=== PATIENT | female | born 1975 | race Caucasian/White ===

== ENCOUNTER 2021-05-14 08:50 | Day surgery (SDC) | payer BC ==
[~2021-05-14] VITALS: Ht 167.6 cm; Wt 122.0 kg
--- NOTE | ~2021-05-14 | OR ---
[facility] [address], [place] [address] Draft DATE OF OPERATION: 05/14/2021 SURGEON: Chance Tobar DO PREOPERATIVE DIAGNOSES: 1. Abnormal uterine bleeding. 2. Fibroid uterus. 3. Morbid obesity. POSTOPERATIVE DIAGNOSES: 1. Abnormal uterine bleeding. 2. Fibroid uterus. 3. Morbid obesity. PROCEDURES PERFORMED: 1. Total laparoscopic hysterectomy. 2. Bilateral salpingectomy. 3. Cystoscopy. REHABILITATION TECHNICIAN: Pedro Burciaga MD ANESTHESIA: General. ESTIMATED BLOOD LOSS: 20 mL. SPECIMENS: Uterus, bilateral fallopian tubes, and cervix. DRAINS: Edmond to dependent drainage. FINDINGS: Fibroid uterus. Normal ovaries bilaterally, status post tubal ligation with Falope rings bilaterally. Hemostasis and excellent apical support during the procedure. On cystoscopy, normal bladder with bilateral ureteral jets. COMPLICATIONS: PATIENT NAME: JEWEL CAMPBELL OPERATIVE REPORT DATE OF : 73 REPORT #: [id number] PHYSICIAN: CHANCE TOBAR DO PCP: OPAL CORDERO REPORT IS CONFIDENTIAL AND NOT TO BE RELEASED WITHOUT AUTHORIZATION [facility] [address], [place] [address] Draft None. INDICATIONS: Ms. Campbell is a pleasant 46-year-old female, who presents with a history of increasing abnormal uterine bleeding. Ultrasound demonstrated fibroid uterus and in-office hysteroscopy was performed and incomplete resection of submucosal fibroid was performed. The patient requests definitive treatment with total laparoscopic hysterectomy. Risks, benefits, and alternatives were discussed in detail with the patient. The patient understands and wished to proceed with procedure. TECHNIQUE: The patient was taken to the operating room. A time-out was performed to confirm correct patient, correct procedure. General anesthesia was adequately established. The patient was prepped and draped in the dorsal lithotomy position with feet in Yellofin stirrups. ICPs were on a running. The patient received Ancef 3 g preoperatively per skip protocol and heparin per Caprini score. A Edmond catheter was inserted. A weighted speculum was placed in vagina and the anterior lip of the cervix was grasped with single-tooth tenaculum. The cervix was gently dilated using Hegar dilators and VCare uterine manipulator was placed without difficulty. Surgeon's gloves were changed and attention was turned to the abdomen. Two cm below the umbilicus, the subcutaneous tissue was infiltrated with 0.25% Marcaine with epinephrine and 3 cm incision was made using a surgical scalpel. Blunt dissection to the fascia was then performed and the fascia was grasped with hemostats, elevated, and entered sharply using Metzenbaum scissors. Stay sutures were placed in the superior and inferior edge of the fascial incision and the peritoneum was entered bluntly. Plummer operative trocar was then placed under direct visualization and pneumoperitoneum was established. Survey of the abdomen and pelvis was performed with above findings noted. A 5 mm assist port was then placed in the left lower quadrant under direct visualization. An 8 mm expanding port was placed in the right lower quadrant under direct visualization without complication. Attention was turned to the hysterectomy. The left fallopian tube was grasped at the fimbriated end, elevated, and dissected along the mesosalpinx using LigaSure device. This was then delivered and sent to pathology for further evaluation. The left uteroovarian ligament was fulgurated and divided. The process was repeated on the right with resection of fallopian tube and the utero-ovarian ligament. The left round ligament was fulgurated and divided using LigaSure device and the leaves of the broad ligament were divided. The anterior leaf was divided down to the level of the vaginal cup and the bladder pushed well below the vaginal cuff. The posterior leaf was divided from the cut edge of the round ligament to the uterosacral ligament and across the posterior edge of the vaginal cup. The uterine vessels were identified, fulgurated, and divided with excellent hemostasis. The process was repeated on the right with the round ligament fulgurated and divided. The leaves of the broad ligament fulgurated and divided and the uterine vessels identified, fulgurated and divided with excellent PATIENT NAME: JEWEL CAMPBELL OPERATIVE REPORT DATE OF : 73 REPORT #: [id number] PHYSICIAN: CHANCE TOBAR DO PCP: OPAL CORDERO REPORT IS CONFIDENTIAL AND NOT TO BE RELEASED WITHOUT AUTHORIZATION [facility] [address], [place] [address] Draft hemostasis. Sonicision device was then used to perform circumferential colpotomy and the cervix and uterus were delivered through the vagina without difficulty. The vagina was packed with a wet lap inside of a surgical glove to maintain pneumoperitoneum. The pelvis was irrigated and found hemostatic. Colpotomy was then repaired using V-Loc suture with an Endostitch device with careful attention to incorporate the uterosacral ligaments and also to incorporate the vaginal epithelium with each bite. This was closed in a running nonlocked manner with excellent hemostasis and apical support noted. The pelvis was then irrigated and found to be hemostatic. Pneumoperitoneum was reduced and the trocars were removed. Fascial incision was repaired using 0 Vicryl in a running nonlocked manner and reinforced by tying the stay sutures together. Skin was then reapproximated using 4-0 Monocryl in subcuticular stitch with excellent hemostasis cosmesis. Attention was then turned to cystoscopy. The Edmond catheter was removed and the glove was removed from the vagina. A 7-degree cystoscope was then placed in the urethral meatus and advanced under direct visualization into the bladder. Normal bladder with normal dome and bilateral ureteral jets was appreciated. The bladder was drained. Edmond catheter was reinserted. The patient was taken to PACU in good and stable condition. Sponge, needle, instrument count were correct x2 at the end of procedure. Dr. Burciaga was present and participated in all portions of the procedure. Chance Tobar DO JQING/ROSALVA /[id number] Copies: ~ PATIENT NAME: JEWEL CAMPBELL OPERATIVE REPORT DATE OF : 73 REPORT #: [id number] PHYSICIAN: CHANCE TOBAR DO PCP: OPAL CORDERO REPORT IS CONFIDENTIAL AND NOT TO BE RELEASED WITHOUT AUTHORIZATION
[~2021-05-14 08:50] MED LIST: DICLOFENAC SODI75 MG PO; EPIPEN 2-P0.3 MG/0.3 IM; FALMINA1 EACH PO; FLUOXETINE HCL20 MG PO; GABAPENTIN300 MG PO; PREDNISONE20 MG PO; TRAZODONE HCL50 MG PO; ULTRAM50 MG PO
--- NOTE | 2021-05-14 15:05 | NUR ---
05/14/21 Tony5 Dorothy Barry 1501- PT ARRIVES TO PACU NONAROUSABLE TO NOXIOUS STIMULI WITH AN OPA IN PLACE. PT ALSO NEEDING A JAW THRUST TO MAINTAIN A PATENT AIRWAY. RESP EVEN AND UNLABORED. OXYGEN SAT HIGH 90'S TO 100% ON 10L VIA MASK.
--- NOTE | 2021-05-14 16:28 | NUR ---
RETURNED TO ROOM. VERY DROWSY. RAILS UP X2 S O AT BS.
--- NOTE | 2021-05-14 17:28 | NUR ---
MORE AWAKE. TAKING SIP WATER. RAMOS CATHETER DCD PER PROTOCAL.
--- NOTE | 2021-05-14 17:58 | NUR ---
PATIENT AMBULATED TO BATHROOM VOIDED >200 ML OF FLOURESCENT YELLOW URINE. PATIENT REPORTED SHE FELT LIKE SHE EMPTIED HER BLADDER. APPEARS STEADY ON FEET. REMOVED SL. PROVIDED DISCHARGE PAPERWORK, PATIENT DRESSSED HER. PROVIDED WHEELCHAIR RIDE OUT TO CAR.
--- NOTE | 2021-05-14 18:23 | NUR ---
[address]ES PER[address] DR POND CALLED FOR [place]. ORDER RECD
== END 2021-05-14 17:55 | disposition home or self-care (01) ==
LOC: DS 08:50
PROVIDERS: ATTEND Obstetrics & Gynecology
PROC: 0UT94ZZ Resection of Uterus, Percutaneous Endoscopic Approach (ICD-10-PCS; principal; 2021-05-14 10:45)
PROC: 0UT74ZZ Resection of Bilateral Fallopian Tubes, Percutaneous Endoscopic Approach (ICD-10-PCS; 2021-05-14 10:45)
DX: N80.0 Endometriosis of uterus (principal); N83.8 Other noninflammatory disorders of ovary, fallopian tube and broad ligament; N93.9 Abnormal uterine and vaginal bleeding, unspecified; D25.0 Submucous leiomyoma of uterus; E66.01 Morbid (severe) obesity due to excess calories; Z68.41 Body mass index [BMI] 40.0-44.9, adult
CPT/HCPCS: 00840; J0330; J0690; J1100; J1200; J1644; J1790; J1885; J2250; J2405; J2550; J2704; J2765; J3010; J7121